=== PATIENT | female | born 1980 | race Caucasian/White ===

== ENCOUNTER 2017-06-11 18:38 | Emergency (ER) | payer BC ==
[~2017-06-11] VITALS: Ht 160 cm; Wt 69.4 kg
--- NOTE | 2017-06-11 19:11 | Emergency Room Report ---
History of Present Illness General Chief Complaint: Headache Source: Patient Present Illness HPI 36-year-old female presents to the emergency department complaining of 10 out of 10 in severity frontal headache with sudden onset x4 days. Patient also reports aggressive left-sided facial numbness and tingling. She reports discomfort when swallowing and feeling as though something is soft. Patient also states she of 101.9 last night. Patient states she is currently 32 a sober living in a residential sober living previously was using heroin. She denies neck pain or stiffness. She reports blurry vision denies floaters, eye pain, loss of vision. Reports intermittent dizziness not described as vertigo . Has tried Tylenol and Motrin without relief . Denies , dysuria, hematuria or frequency . Denies trauma,fall, nausea or vomiting. Denies loss of gross motor movements of the extremities, incontinence of bowel or bladder. Denies CP, Palpitations, LOC, or AMS. 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 Last Menstrual Period: Current Now: No Immunizations: UTD Reviewed Nursing Documentation: PMH: Agreed, PSxH: Agreed Nursing Documentation-PMH Hx Cardiac Problems: Yes - MVP History Of Psychiatric Problem: Yes - Anxiety; Depression Review of Systems All Other Systems: negative except mentioned in HPI Physical Exam Vital Signs Date Time Temp Pulse Resp B/P (MAP) Pulse Ox O2 Delivery O2 Flow Rate FiO2 06/11/17 18:40 97.9 102 16 158/77 99 Room Air Sp02 EP Interpretation: reviewed, normal General Appearance: alert, GCS 15, non-toxic, mild distress Head: normocephalic, atraumatic Eyes: bilateral eye normal inspection, bilateral eye PERRL, bilateral eye EOMI , bilateral eye photophobia ENT: hearing grossly normal, normal voice, TMs + canals normal, uvula midline Neck: full range of motion, no meningismus, no bony tend Respiratory: lungs clear, normal breath sounds, speaking full sentences Cardiovascular #1: regular rate, rhythm, tachycardia Cardiovascular #2: 2+ radial (R), 2+ radial (L) Gastrointestinal: normal bowel sounds, non tender, soft Rectal: deferred Genitourinary: normal inspection, no CVA tenderness Musculoskeletal: back normal, gait/station normal, normal range of motion, non- tender Neurologic: alert, oriented x3, responsive, motor strength/tone normal, sensory intact, normal gait, speech normal, no pronator, other - negative peña's , equal summer camp counselor strength, no facial droop, no abnormal gaze, or notable nystagmus. Psychiatric: judgement/insight normal, memory normal, mood/affect normal, no suicidal/homicidal ideation Skin: normal color, no rash, warm/dry, well hydrated Medical Decision Making PA Attestation Dr. guerrero is my supervising Physician whom patient management has been discussed with. Diagnostic Impression: Primary Impression: Headache Qualified Codes: R51 - Headache ER Course 36-year-old female presents to the emergency department complaining of 10 out of 10 in severity frontal headache with sudden onset x4 days. Patient also reports aggressive left-sided facial numbness and tingling. She reports discomfort when swallowing and feeling as though something is soft. Patient also states she of 101.9 last night. Patient states she is currently 32 a sober living in a residential sober living previously was using heroin. She denies neck pain or stiffness. She reports blurry vision denies floaters, eye pain, loss of vision. Reports intermittent dizziness not described as vertigo . Has tried Tylenol and Motrin without relief . Denies , dysuria, hematuria or frequency . Denies trauma,fall, nausea or vomiting. Denies loss of gross motor movements of the extremities, incontinence of bowel or bladder. Denies CP, Palpitations, LOC, or AMS. Ddx considered but are not limited to migraine, SAH, Psedudo motor Cerebri, Mass lesion, Cluster TORRES, Tension TORRES, Post lumbar puncture TORRES. Vital signs: are WNL, pt. is afebrile H&PE are most consistent with Headache, Unk cause- HPI containing Neurological Red Flags, in conjunction with Subjective/Perceived neurological symptoms concerning enough to warrant Head CT. PT. has Normal Clinical exam otherwise. ORDERS: - UA: WNL -Urine Hcg: Negative -CBC: WNL -CMP: mild elevated AST. lower anion gap with slight bicarb elevation, otherwise unremarkable -Lactic Acid: WNL -Blood Cultures: Pending -Troponin/CK: WNL - CT Head NO CONTRAST: No evidence of acute fracture, hemorrhage, or intracranial process --Per official radiology report- Please see report for specific details. ED INTERVENTIONS: - Reglan IV -Benadryl IV -1 Liter NS -Tylenol PO -re-assessment: pt. states her pain has improved with above interventions. D/ w pt. that PCP and Neurological follow up is recommended. gave pt. ED return precautions to return with worsening or new symptoms. DISCHARGE: At this time pt. is stable for d/c to home. Will provide printed patient care instructions, and any necessary prescriptions. Care plan and follow up instructions have been discussed with the patient prior to discharge. EKG Diagnostic Results EP Interpretation: Dr. Branham Rate: normal Rhythm: NSR ST Segments: no acute changes Other Impression prolonged QT: 424 ASA given to the pt in ED: No PA Scribe Text this interpretation was scribed by ERIS Medina. Last Vital Signs Date Time Temp Pulse Resp B/P (MAP) Pulse Ox O2 Delivery O2 Flow Rate FiO2 06/11/17 18:40 97.9 102 16 158/77 99 Room Air Disposition: HOME, SELF-CARE Condition: Stable Scripts Aspirin/Acetaminophen/Caffeine (EXCEDRIN MIGRAINE GELTAB) 1 Each Tablet 1 EACH PO Q6HR, #20 TAB Prov: Shi Medina 06/11/17 Patient Instructions: General Headache Without Cause Additional Instructions: Take medications as directed. Follow up with a Primary Care Provider in 3-5 days Neurologist evaluation if symptoms return, even if your symptoms have resolved. --Please review list of primary care clinics, if you do not already have a primary care provider Return sooner to ED if new symptoms occur, or current symptoms become worse. - Please note that this Emergency Department Report was dictated using [employer]supervisor gas meter repair technology software, occasionally this can lead to erroneous entry secondary to interpretation by the dictation equipment. Shi Medina Jun 11, 2017 19:11
[2017-06-11] MEDS ORDERED: IBUPROFEN600 MG ORAL (19:12)
[2017-06-11] MEDS ORDERED: PAXIL20 MG ORAL (19:12)
[2017-06-11] MEDS ORDERED: LITHIUM CARBON300 MG ORAL (19:12)
[2017-06-11] MEDS ORDERED: AZITHROMYCIN250 MG ORAL (19:12)
[2017-06-11] MEDS ORDERED: GABAPENTIN600 MG ORAL (19:12)
[2017-06-11] MEDS ORDERED: HYDROXYZINE PA100 MG ORAL (19:12)
[2017-06-11] MEDS ORDERED: Metoclopramide 10mg/2ml Inj IVP ONE (19:30)
[2017-06-11 19:43] LABS: APPEARANCE,URINE CLEAR; BILIRUBIN, URINE NEGATIVE (NEGATIVE); COLOR,URINE PALE YELLOW; GLUCOSE, URINE (UA) NEGATIVE (NEGATIVE); KETONES,URINE NEGATIVE (NEGATIVE); LEUKOCYTE ESTERASE ,URINE 1+ (NEGATIVE); NITRITE,URINE NEGATIVE (NEGATIVE); PH,URINE 6.5 (4.5-8.0); PROTEIN,URINE NEGATIVE (NEGATIVE); UROBILINOGEN,URINE NORMAL MG/DL (0.0-1.0)
[2017-06-11 20:20] LABS: EOSINOPHILS % (AUTO) 6.2 % (0.0-3.0); HEMATOCRIT 38.7 % (37.0-47.0); HEMOGLOBIN 12.4 G/DL (12.0-16.0); LYMPHOCYTES % (AUTO) 33.9 % (20.0-45.0); MEAN CORPUSCULAR VOLUME 88 FL (80-99); MONOCYTES % (AUTO) 5.7 % (1.0-10.0); NEUTROPHILS % (AUTO) 53.3 % (45.0-75.0); PLATELET COUNT 384 K/UL (150-450); RED BLOOD COUNT 4.38 M/UL (4.20-5.40)
[2017-06-11] MEDS ORDERED: DiphenhydrAMINE 50mg/ml Inj IVP ONE (20:45)
[2017-06-11 20:52] LABS: ALANINE AMINOTRANSFERASE 60 U/L (12-78); ALBUMIN 3.3 G/DL (3.4-5.0); ALBUMIN/GLOBULIN RATIO 0.9 (1.0-2.7); ALKALINE PHOSPHATASE 74 U/L (46-116); ANION GAP 1 mmol/L (5-15); ASPARTATE AMINO TRANSFERASE 41 U/L (15-37); BILIRUBIN,TOTAL 0.1 MG/DL (0.2-1.0); BLOOD UREA NITROGEN 13 mg/dL (7-18); CALCIUM 9.1 MG/DL (8.5-10.1); CARBON DIOXIDE 34 MMOL/L (21-32); CHLORIDE 105 MMOL/L (98-107); CREATININE 0.9 MG/DL (0.55-1.30); SODIUM 140 MMOL/L (136-145)
[2017-06-11 21:03] LABS: CKMB 1.6 NG/ML (0.0-3.6); CREATINE KINASE 82 U/L (26-308)
[2017-06-11] MEDS ORDERED: EXCEDRIN MIGRA1 EACH PO (21:08)
[2017-06-11 21:21] VITALS: BP 103/61
[2017-06-11 22:15] VITALS: BP 103/61
--- NOTE | 2017-06-12 10:05 | Diagnostic Imaging Report ---
Indication: Headache Technique: Contiguous 5 mm thick transaxial imaging of the head obtained in a Siemens Sensation [address] scanner. Soft tissue and bone windows generated. Total Dose length Product (DLP): [address] Dose Index Volume (CTDIvol): 70.38, 0.15 mGy Comparison: none Findings: The size and configuration of the cortical sulci, basal cisterns, and ventricles are within normal limits for age. There is no mass effect, midline shift, or edema identified. There is no evidence of acute hemorrhage or abnormal intra-axial or extra-axial fluid collections. The bones and soft tissues are unremarkable. Fluid noted in the left maxillary sinus. Findings presumably on the basis of sinusitis. Please correlate clinically. Impression: No mass effect, edema or acute bleed. Sinusitis [facility] has communicated the preliminary results to the Emergency Department. Their findings are largely concordant with this report. The CT scanner at [facility] is accredited by the [employer] and the scans are performed using dose optimization techniques as appropriate to a performed exam including Automatic Exposure control.
--- NOTE | 2017-06-12 10:51 | Diagnostic Imaging Report ---
Indication: Dyspnea Comparison: None A single view chest radiograph was obtained. Findings: Cardiomediastinal appearance is within normal limits for age. Pulmonary vascularity is appropriate. The diaphragmatic contour is smooth and costophrenic angles are sharp. No pleural effusions are identified. The bones are unremarkable. Impression: No acute findings
--- NOTE | 2017-06-12 16:37 | Cardiology Report ---
APPROVED REPORT EKG Measurement Heart [id number] [place] 170P51 [id number] Normal sinus rhythm Prolonged QT Abnormal ECG
--- NOTE | 2017-06-12 16:37 | Cardiology Report ---
APPROVED REPORT EKG Measurement Heart [id number] [place] 170P51 [id number] Normal sinus rhythm Prolonged QT Abnormal ECG
--- NOTE | 2017-06-12 16:37 | Cardiology Report ---
APPROVED REPORT EKG Measurement Heart [id number] [place] 170P51 [id number] Normal sinus rhythm Prolonged QT Abnormal ECG
== END 2017-06-11 22:15 | disposition home or self-care (01) ==
LOC: EMR 20:21
DX: R51 Headache (principal); F41.9 Anxiety disorder, unspecified; F32.9 Major depressive disorder, single episode, unspecified; Z88.1 Allergy status to other antibiotic agents
CPT/HCPCS: 36415; 70450; 71010; 80053; 81003; 81025; 82550; 82553; 83605; 84484; 85025; 87040; 93005; 96361; 96374; 96375; 99284; J1200; J2765

== ENCOUNTER 2017-06-15 09:13 | Emergency (ER) | payer BC ==
[~2017-06-15] VITALS: Ht 160 cm; Wt 69.4 kg
[~2017-06-15 09:13] MED LIST: AZITHROMYCIN250 MG ORAL; EXCEDRIN MIGRA1 EACH PO; GABAPENTIN600 MG ORAL; HYDROXYZINE PA100 MG ORAL; IBUPROFEN600 MG ORAL; LITHIUM CARBON300 MG ORAL; PAXIL20 MG ORAL
[2017-06-15] MEDS ORDERED: AZITHROMYCIN250 MG ORAL (09:15)
[2017-06-15 09:32] VITALS: BP 123/76
[2017-06-15 09:36] VITALS: BP 123/76
--- NOTE | 2017-06-16 22:03 | Emergency Room Report ---
History of Present Illness General Chief Complaint: Chest Pain Source: Patient Present Illness HPI Patient presents with complaints of midsternal chest pain Reports that she was told by her physician she should be ruled out for endocarditis Patient has history of previous drug abuse Patient reports recent visit at another emergency room with blood work and other imaging at this time the pain started yesterday midsternal heaviness denies any pleurisy Denies any vomiting or diarrhea patient however felt that region read and tremulous from her reports Denies any neck pain or photophobia Allergies: Coded Allergies: VANCOMYCIN (Verified Allergy, Mild, Hives, 06/11/17) Patient History Past Medical History: see triage record Pertinent Family History: none Last Menstrual Period: 06/13/17 Now: No Reviewed Nursing Documentation: PMH: Agreed, PSxH: Agreed Nursing Documentation-PMH Past Medical History: No History, Except For Review of Systems All Other Systems: negative except mentioned in HPI Physical Exam Vital Signs Date Time Temp Pulse Resp B/P (MAP) Pulse Ox O2 Delivery O2 Flow Rate FiO2 06/15/17 09:06 98.1 111 18 123/76 99 Room Air Sp02 EP Interpretation: reviewed, normal General Appearance: well appearing, no apparent distress Head: normocephalic, atraumatic Eyes: bilateral eye PERRL, bilateral eye EOMI ENT: hearing grossly normal, normal pharynx, TMs + canals normal, uvula midline Neck: full range of motion, supple, no meningismus, no bony tend Respiratory: lungs clear, normal breath sounds, no rhonchi, no respiratory distress, no retraction, no accessory muscle use Cardiovascular #1: normal peripheral pulses, regular rate, rhythm, no edema, no gallop, no JVD, no murmur Gastrointestinal: normal bowel sounds, non tender, soft, no mass, no organomegaly, non-distended, no guarding, no hernia, no pulsatile mass, no rebound Genitourinary: no CVA tenderness Musculoskeletal: normal inspection Neurologic: oriented x3, responsive, promotions manager III-XII nml as tested, motor strength/ tone normal, sensory intact Psychiatric: mood/affect normal Skin: normal color, no rash, warm/dry, palpation normal Lymphatic: normal inspection, no adenopathy Medical Decision Making Diagnostic Impression: Primary Impression: Chest pain ER Course Patient is a fairly complex patient with multiple differential to consideration including but not limited to cardiac cardiopulmonary and vascular emergencies Endocarditis as the patient mentions does need to be considered patient however is afebrile Hemodynamically stable Has appropriate clinical evaluation EKG is also normal and the patient is stable for close followup EKG Diagnostic Results Rate: normal Rhythm: NSR ST Segments: no acute changes Rhythm Strip Diag. Results EP Interpretation: yes Rate: 66 Rhythm: NSR, no PVC's, no ectopy Last Vital Signs Date Time Temp Pulse Resp B/P (MAP) Pulse Ox O2 Delivery O2 Flow Rate FiO2 06/15/17 09:36 99.3 18 123/76 99 Room Air 06/15/17 09:33 101 Status: unchanged Disposition: HOME, SELF-CARE Condition: Stable Referrals: [facility] NOT CHOSEN IPA/MD,REFERRING Patient Instructions: Nonspecific Chest Pain Additional Instructions: Patient is provided with the discharge instructions notified to follow up with primary doctor in the next 2-3 days otherwise return to the er with any worsening symptoms. Please note that this report is being documented using [employer] technology. This can lead to erroneous entry secondary to incorrect interpretation by the dictating instrument. STONE JUNG D.O. Jun 16, 2017 22:03
--- NOTE | 2017-06-24 16:14 | Cardiology Report ---
APPROVED REPORT EKG Measurement Heart [id number] [place] 152P71 [id number] Sinus tachycardia Otherwise normal ECG
--- NOTE | 2017-06-24 16:14 | Cardiology Report ---
APPROVED REPORT EKG Measurement Heart [id number] [place] 152P71 [id number] Sinus tachycardia Otherwise normal ECG
--- NOTE | 2017-06-24 16:14 | Cardiology Report ---
APPROVED REPORT EKG Measurement Heart [id number] [place] 152P71 [id number] Sinus tachycardia Otherwise normal ECG
== END 2017-06-15 09:41 | disposition home or self-care (01) ==
LOC: EDBD 09:13 → EMR 09:26
DX: R07.89 Other chest pain (principal); Z88.1 Allergy status to other antibiotic agents
CPT/HCPCS: 93005; 99283